=== PATIENT | male | born 1990 | race Caucasian/White ===

== ENCOUNTER 2020-07-23 03:09 | Emergency (ER) | payer BC ==
[~2020-07-23] VITALS: Ht 190.5 cm; Wt 99.8 kg
--- NOTE | 2020-07-23 03:19 | NUR ---
at bedside at [facility] [place].
[2020-07-23] MEDS ORDERED: OXYCODONE/APAP 5-325 MG TABLET PO ONE (03:45)
[2020-07-23] MEDS ORDERED: OXYCODONE/APAP 5-325 MG TABLET ONE (03:46)
[2020-07-23 04:24] VITALS: BP 118/91
--- NOTE | 2020-07-23 06:00 | NUR ---
Patient discharged to home in stable condition. Written and verbal after care instructions given. Patient verbalizes understanding of instructions. Stressed follow up or return to ER for worsening s/s. Pt able to ambulate out of ER with steady gait. No acute distress noted.
== END 2020-07-23 06:09 | disposition home or self-care (01) ==
LOC: ER 03:24
DX: S82.892A Other fracture of left lower leg, initial encounter for closed fracture (principal); X58.XXXA Exposure to other specified factors, initial encounter; Y93.9 Activity, unspecified; Y92.89 Other specified places as the place of occurrence of the external cause
CPT/HCPCS: 73610; A4663